=== PATIENT | male | born 1995 | race Two or more races ===

== ENCOUNTER 2024-11-03 09:15 | Day surgery (SDC) | payer MEDICAID, SELFPAY ==
[2024-11-02 11:28] VITALS: BMI 45.8
[2024-11-02 13:09] LABS: Basophils # (Auto) 0.1 Thou/mm3 (0.0-0.2); Basophils % (Auto) 1 % (0-2.5); Eosinophils # (Auto) 0.3 Thou/mm3 (0.0-0.5); Eosinophils % (Auto) 3 % (0-10); Hematocrit 43.1 % (41.0-53.0); Hemoglobin 14.6 g/dL (13.5-16.0); Immature Granulocytes % (Auto) 0 % (0-0); Immature Granulocytes Auto 0.03 Thou/mm3 (0.00-0.00); Lymphocytes # (Auto) 2.2 Thou/mm3 (1.0-4.8); Lymphocytes % (Auto) 26 % (10-50); Mean Corpuscular HGB Conc 33.9 g/dl (31.0-37.0); Mean Corpuscular Hemoglobin 28.7 pg (25.0-35.0); Mean Corpuscular Volume 85 fL (80-100); Monocytes # (Auto) 0.9 Thou/mm3 (0.0-0.8); Monocytes % (Auto) 11 % (0-12); Neutrophils # (Auto) 4.8 Thou/mm3 (1.8-7.7); Neutrophils % (Auto) 58 % (37-80); Nucleated Red Blood Cell % 0 /100 WBC (0); Platelet Count 298 Thou/mm3 (140-440); RDW Standard Deviation 38.1 fL (35.1-43.9); Red Blood Count 5.09 Miln/mm3 (4.50-5.90); White Blood Count 8.2 Thou/mm3 (3.8-10.6)
[2024-11-02 13:28] LABS: Alanine Aminotransferase 21 U/L (10-49); Albumin, Serum 4.6 gm/dL (3.5-5.0); Albumin/Globulin Ratio 1.6 (1.2-2.2); Alkaline Phosphatase 67 U/L (46-116); Anion Gap 10 (7-16); Aspartate Amino Transferase 19 U/L (0-34); BUN/Creatinine Ratio 12 Ratio (12-20); Bilirubin,Total 0.4 mg/dL (0.3-1.2); Blood Urea Nitrogen 13 mg/dL (9-23); Calcium 9.6 mg/dL (8.3-10.6); Calcium (Corrected) 9.6 mg/dL (8.5-10.1); Carbon Dioxide 28.7 mMol/L (20.0-31.0); Chloride 104 mMol/L (98-107); Creatinine (Component) 1.1 mg/dL (0.6-1.3); Estimated Creatinine Clearance 133.1 mL/min (>60); Globulin 2.9 gm/dL (2.3-3.5); Glucose 78 mg/dL (74-106); Osmolality,Calculated 284 (275-295); Sodium 143 mMol/L (136-145); Total Protein 7.5 gm/dL (5.7-8.2); eGFR > 60 See Note
[2024-11-02 13:32] LABS: Partial Thromboplastin Time 25.6 Seconds (22.0-36.0); Prothrombin Time 10.9 Seconds (9.0-12.2)
[2024-11-03] VITALS (7 sets, daily range): BP systolic 120–140; BP diastolic 75–88; PULSE 79–92; RESP 13–22; TEMP 36.3–36.8; O2SAT 95–98; BMI 44.1
[2024-11-03] MEDS: RINGERS LACTATED 1000 ML 1,000 ML 20 ML IV (09:58)
--- NOTE | 2024-11-03 10:31 | SUR.PREOP ---
Patient expressed gratitude for prayer before their procedure.
--- NOTE | 2024-11-03 11:57 | PD.SUROPNT ---
Date of Procedure 11/03/24 Pre Op Diagnosis Symptomatic umbilical hernia Post Op Diagnosis Same Procedure Repair of the symptomatic umbilical hernia with 1.[address] mesh. Findings Patient is found to have a herniation of the preperitoneal fat and some omentum in the hernia defect which is narrow measuring maybe 1.5 cm in diameter. It required mesh Procedure Description After the patient was brought to the operating room endotracheal anesthesia given. Then his abdomen was prepped with ChloraPrep solution and draped in a sterile manner. Timeout is performed. Then I made a curved incision below the umbilicus after injecting it with half percent Marcaine. Subcutaneous tissue was divided and because of the patient's morbid obesity hernia was located deep in the subcutaneous tissue. This was some containing only preperitoneal fat and some omentum. I clamped the preperitoneal pad suture-ligated with 2-0 chromic. Then the defect was palpated all around and easily admitted to my finger. Even though fascia was strong I felt the primary closure would fail because of his obesity and prominent abdomen. Therefore I used a 1.[address] mesh and attach the Marlex straps to the edges of the defect. Then the subcutaneous tissue was closed with 2 layers using 3-0 chromic and 3-0 plain and the skin was closed with 4-0 Monocryl after injection of the local anesthesia. Patient tolerated procedure well. Anesthesia GETA Pathology / specimen None Estimated Blood Loss 20 Surgeon Iris Lamb MD Surgical Staff Operation Date: 11/03/24 11:45 Case Staff Anesthesiologist: Eliseo Bryan RNpacker operator automatic: Nalini Jeffries
--- NOTE | 2024-11-03 12:07 | SUR.PHASEI ---
pt received from OR in recovery bay 7. pt obtunded, breathing unlabored on 10l oxymask, oral and nasal airway in place. v/s stable. pt dressing to abd cdi. report received from Evan MONSIVAIS and Dr. Bryan.
--- NOTE | 2024-11-03 12:44 | SUR.PHASEII ---
pt able to tolerate oral fluids without difficulty swallowing or nausea/vomiting.
--- NOTE | 2024-11-03 13:06 | SUR.PHASEII ---
pt awake and alert, breathing unlabored on room air. v/s stable. pt dressing to abd cdi. pt able to ambulate to wheelchair with steady gait. d/c instructions given with Geraldo in room all questions answered. pt d/c via wheelchair with all belongings.
== END 2024-11-03 13:06 | disposition home or self-care (01) ==
PROVIDERS: Referring Provider Surgery; Visit Provider Surgery
PROC: (CPT 49591; principal; 2024-11-03 11:30)
DX: K42.9 Umbilical hernia without obstruction or gangrene (principal)
CPT/HCPCS: 49591; 36415; 80053; 85025; 85610; 85730; A4217; A4649; C1781; J0330; J1100; J2704; J2765; J3010; J3490; J7120; A9270